=== PATIENT | male | born 1955 ===

== ENCOUNTER 2017-11-18 14:02 | Emergency (ER) | payer MEDICARE ==
[~2017-11-18] VITALS: Ht 177.8 cm; Wt 81.7 kg
[~2017-11-18 14:02] MED LIST: ASPI81CH PO; ASPI81EC; ASPI81EC PO; CELE200 PO; CHOL10002 PO; DIAZ5 PO; DOCU100 PO; EZET10-40 PO; FAMO20 PO; Flexeril 10 mg10 MG PO; HYDACE5; HYDACE5 PO; HYDR1TAB94 PO; HYDSUL200 PO; IBUP800 PO; MULVITMINF PO; NAPR500 PO; ONDA4ODT MM; OXYACE5T PO; PHENY100ER PO; PRED20 PO; PROM25 PO; PROM25S PR; Percocet 5-3251 EACH PO; Robaxin500 MG PO; SIMV40 PO; TAMS.4ER PO; VENL75ER PO
== END 2017-11-18 15:57 | disposition home or self-care (01) ==
LOC: ER 14:02
DX: S61.012A Laceration without foreign body of left thumb without damage to nail, initial encounter (principal); I25.2 Old myocardial infarction; Z88.8 Allergy status to other drugs, medicaments and biological substances; Z79.82 Long term (current) use of aspirin; Z79.899 Other long term (current) drug therapy; Z86.73 Personal history of transient ischemic attack (TIA), and cerebral infarction without residual deficits; W27.0XXA Contact with workbench tool, initial encounter
CPT/HCPCS: 12031; 73130; 99283

== ENCOUNTER 2017-11-25 11:17 | Emergency (ER) | payer MEDICARE ==
[~2017-11-25] VITALS: Ht 177.8 cm; Wt 81.7 kg
== END 2017-11-25 12:12 | disposition home or self-care (01) ==
LOC: ER 11:17
DX: S61.012D Laceration without foreign body of left thumb without damage to nail, subsequent encounter (principal); W26.8XXD Contact with other sharp object(s), not elsewhere classified, subsequent encounter; Z88.8 Allergy status to other drugs, medicaments and biological substances; Z79.899 Other long term (current) drug therapy; Z79.82 Long term (current) use of aspirin; I25.2 Old myocardial infarction; Z86.73 Personal history of transient ischemic attack (TIA), and cerebral infarction without residual deficits
CPT/HCPCS: 99281

== ENCOUNTER 2018-06-25 09:47 | Emergency (ER) | payer MEDICARE ==
[~2018-06-25] VITALS: Ht 180.3 cm; Wt 81.7 kg
[2018-06-25] MEDS ORDERED: Prednisone50 MG PO (10:53)
[2018-06-25] MEDS ORDERED: Norco 5-325 Ta1 EACH PO (10:53)
[2018-06-25 16:44] LABS: BASOPHILS ABSOLUTE AUTO 0.03 K/mm3 (0.00-0.23); BASOPHILS PERCENT AUTO 0 % (0-2); EOSINOPHILS ABSOLUTE AUTO 0.01 K/mm3 (0.00-0.68); EOSINOPHILS PERCENT AUTO 0 % (0-6); Hemoglobin 14.1 g/dL (13.5-17.5); IMMATURE GRAN ABSOLUTE AUTO 0.03 K/mm3 (0.00-0.10); IMMATURE GRAN PERCENT AUTO 0 % (0-1); LYMPHOCYTES ABSOLUTE AUTO 0.93 K/mm3 (0.84-5.20); LYMPHOCYTES PERCENT AUTO 11 % (21-46); MONOCYTES ABSOLUTE AUTO 0.17 K/mm3 (0.16-1.47); MONOCYTES PERCENT AUTO 2 % (4-13); Mean Corpuscular HGB 29.7 pg (26.0-34.0); Mean Corpuscular HGB Conc 33.6 g/dL (31.5-36.5); Mean Corpuscular Volume 89 fL (80-100); Mean Platelet Volume 10.8 fL (9.1-12.4); NEUTROPHILS ABSOLUTE AUTO 7.59 K/mm3 (1.96-9.15); NEUTROPHILS PERCENT AUTO 87 % (41-73); Platelet Count 277 K/mm3 (150-400); RDW Coefficient Variation 12.9 % (11.7-14.2); RDW Standard Deviation 42.3 fL (35.1-46.3); Red Blood Cell Count 4.74 M/mm3 (4.30-5.90); White Blood Cell Count 8.76 K/mm3 (4.00-11.30)
[2018-06-25 17:06] LABS: Albumin, Blood 4.2 g/dL (3.4-5.0); Albumin/Globulin Ratio 1.1 (0.8-1.8); Bilirubin, Total 0.4 mg/dL (0.1-1.0); Bun/Creatinine Ratio 14.2 (12.0-20.0); Calcium, Blood 9.9 mg/dL (8.5-10.1); Creatinine, Blood 1.76 mg/dL (0.60-1.20); Globulin, Blood 3.8 g/dL (2.2-4.0); Potassium, Blood 4.3 mmol/L (3.5-5.5)
== END 2018-06-25 11:07 | disposition home or self-care (01) ==
LOC: ER 09:47
PROVIDERS: Physician Assistant
DX: M54.16 Radiculopathy, lumbar region (principal); I25.2 Old myocardial infarction; Z88.8 Allergy status to other drugs, medicaments and biological substances; Z79.899 Other long term (current) drug therapy; Z79.82 Long term (current) use of aspirin; Z86.73 Personal history of transient ischemic attack (TIA), and cerebral infarction without residual deficits
CPT/HCPCS: 36415; 80053; 85025; 96372; 99283; J1885

== ENCOUNTER 2018-06-28 12:54 | Emergency (ER) | payer MEDICARE ==
[~2018-06-28] VITALS: Ht 180.3 cm; Wt 81.7 kg
[~2018-06-28 12:54] MED LIST changes: +Norco 5-325 Ta1 EACH PO; +Prednisone50 MG PO
[2018-06-28] MEDS ORDERED: KETO10 PO (14:35)
[2018-06-28] MEDS ORDERED: Cyclobenzaprine5 MG PO (14:35)
== END 2018-06-28 14:40 | disposition home or self-care (01) ==
LOC: ER 12:54
DX: M54.42 Lumbago with sciatica, left side (principal); I25.2 Old myocardial infarction; Z79.899 Other long term (current) drug therapy; Z79.82 Long term (current) use of aspirin; Z79.52 Long term (current) use of systemic steroids; Z86.73 Personal history of transient ischemic attack (TIA), and cerebral infarction without residual deficits
CPT/HCPCS: 96372; 99282; J1885

== ENCOUNTER 2019-11-10 08:40 | Day surgery (SDC) | payer OTHER ==
[~2019-11-10] VITALS: Ht 177.8 cm; Wt 89.5 kg
[~2019-11-10 08:40] MED LIST changes: +Cyclobenzaprine5 MG PO; +KETO10 PO; +Prinivil10 MG PO
--- NOTE | 2019-11-10 11:13 | NUR ---
11/10/19 1113 Yady Silva PATIENTS O2 SATS DECREASED TO 88%, JAW THRUST USED AND 02 INCREASED TO 5LPMS. PATIENTS 02 SATS INCREASED TO 96% AND REMAINED THERE FOR THE REMAINDER OF THE PROCEDURE.
--- NOTE | 2019-11-10 11:31 | NUR ---
11/10/19 1131 Yady Silva PATIENT REFUSED MULTIPLE OFFERS OF PO FLUIDS
== END 2019-11-10 11:34 | disposition home or self-care (01) ==
LOC: ORSCSDS 08:40
PROVIDERS: Internal Medicine Gastroenterology
PROC: 0DBM8ZX Excision of Descending Colon, Via Natural or Artificial Opening Endoscopic, Diagnostic (ICD-10-PCS; principal; 2019-11-10 10:45)
PROC: 0DBN8ZX Excision of Sigmoid Colon, Via Natural or Artificial Opening Endoscopic, Diagnostic (ICD-10-PCS; principal; 2019-11-10 10:45)
DX: Z12.11 Encounter for screening for malignant neoplasm of colon (principal); D12.4 Benign neoplasm of descending colon; D12.5 Benign neoplasm of sigmoid colon; E78.5 Hyperlipidemia, unspecified; I25.2 Old myocardial infarction; Z79.82 Long term (current) use of aspirin; Z79.899 Other long term (current) drug therapy
CPT/HCPCS: 88305; J2704; J7120

== ENCOUNTER 2022-10-27 10:29 | Emergency (ER) | payer MEDICARE ==
[~2022-10-27] VITALS: Ht 180.3 cm; Wt 93.0 kg
[2022-10-27] MEDS ORDERED: Norco 5-325 Ta1 EACH PO ×2 (12:36→12:38)
[2022-10-27] MEDS ORDERED: ERYT1OIN BOTHEYES ×2 (12:36→12:38)
== END 2022-10-27 12:49 | disposition home or self-care (01) ==
LOC: ER 10:29
DX: H16.133 Photokeratitis, bilateral (principal); Z86.73 Personal history of transient ischemic attack (TIA), and cerebral infarction without residual deficits; Z79.899 Other long term (current) drug therapy; Z79.82 Long term (current) use of aspirin
CPT/HCPCS: A9270

== ENCOUNTER 2024-04-17 14:40 | Emergency (ER) | payer MEDICARE ==
[~2024-04-17] VITALS: Ht 180.3 cm; Wt 98.4 kg
[~2024-04-17 14:40] MED LIST changes: +CEPH500 PO; +ERYT1OIN BOTHEYES
[2024-04-17 15:01] VITALS: BP 131/92
[2024-04-17] MEDS ORDERED: PSEU120ER PO (15:29)
== END 2024-04-17 15:51 | disposition home or self-care (01) ==
LOC: ER 14:40
DX: J30.9 Allergic rhinitis, unspecified (principal); R42 Dizziness and giddiness; Z79.899 Other long term (current) drug therapy; Z79.82 Long term (current) use of aspirin; I25.2 Old myocardial infarction
CPT/HCPCS: 99282